=== PATIENT | male | born 1980 | race Caucasian/White ===

== ENCOUNTER 2018-11-01 12:16 | Inpatient (IN) | payer MEDICAID, OTHER ==
--- NOTE | 2018-11-01 12:52 | ED ---
Psychiatric Complaint - HPI Summary HPI Summary: A 38 y/o male presents to [facility] with a chief complaint of not feeling emotionally or physically safe. Per triage note, the patient's roommate said that the patient had suicidal thoughts. The patient denies any current SI or HI. At triage he rated his pain as a 0/10 in severity. The patient says that he has been previously admitted to a psychiatric facility. He notes that he is not on psych medications that he should be on. He says that his family lives in [place]. He says that he smokes and drinks a lot, but did not drink today. He also reports marijuana use. He denies a Hx of DM or asthma. - History Of Current Complaint Chief Complaint: EDPsychosocial Time Seen by Provider: 11/01/18 12:39 Hx Obtained From: Patient Onset/Duration: Sudden Onset, Lasting Hours, Still Present Timing: Hours Severity Initially: Mild Severity Currently: None Character: Depressed Aggravating Factor(s): Nothing Alleviating Factor(s): Nothing Associated Signs And Symptoms: Positive: Negative Related History: Positive For: Prior Psychiatric Issues Has Suicidal: Reports: Thoughts - reported by roommate, Pt denies current SI Has Homicidal: Denies: Thoughts - Allergies/Home Medications Allergies/Adverse Reactions: Allergies Allergy/AdvReac Type Severity Reaction Status Date / Time No Known Allergies Allergy Verified 11/01/18 12:29 PMH/Surg Hx/FS Hx/Imm Hx Musculoskeletal History: Reports: Hx Back Problems - lower back pain Sensory History: Denies: Hx Deafness EENT History: Denies: Hx Deafness - Surgical History Surgery Procedure, Year, and Place: lasic on left eye at 1 yo Infectious Disease History: No Infectious Disease History: Denies: Traveled Outside the [place] in Last 30 Days - Family History Known Family History: Positive: Non-Contributory - Social History Alcohol Use: Daily Alcohol Amount: 6 beers/day Substance Use Type: Reports: Marijuana Substance Use Comment - Amount & Last Used: occassional marijuana use Smoking Status (MU): Current Every Day Smoker Type: Cigarettes Amount Used/How Often: 1/2 ppd Review of Systems Negative: Fever Psychological: Other - positive: SI reported by roommate Positive: Other - negative: current SI/HI All Other Systems Reviewed And Are Negative: Yes Physical Exam - Summary Physical Exam Summary: GENERAL: Patient is a well-developed and nourished M who is lying comfortable in the stretcher. Patient is not in any acute respiratory distress. HEAD AND FACE: Normocephalic EYES: PERRLA, EOMI x 2. EARS: Hearing grossly intact. MOUTH: Oropharynx within normal limits. NECK: Supple, trachea is midline, no adenopathy, no JVD, no carotid bruit. CHEST: Symmetric, no tenderness at palpation LUNGS: Clear to auscultation bilaterally. No wheezing or crackles. CVS: Regular rate and rhythm, S1 and S2 present, no murmurs or gallops appreciated. ABDOMEN: Soft, non-tender. Bowel sounds are normal. No abnormal abdominal pulsations. EXTREMITIES: Full ROM in all major joints, no edema, no cyanosis or clubbing. NEURO: Alert and oriented x 3. No acute neurological deficits. Speech is normal and follows commands. SKIN: Dry and warm Psych: affect is very flat Triage Information Reviewed: Yes Vital Signs On Initial Exam: Initial Vitals Temp Pulse Resp BP Pulse Ox 99.1 F 121 20 184/115 99 11/01/18 12:20 11/01/18 12:20 11/01/18 12:20 11/01/18 12:20 11/01/18 12:20 Vital Signs Reviewed: Yes Diagnostics - Vital Signs Vital Signs Temp Pulse Resp BP Pulse Ox 11/01/18 12:20 99.1 F 121 20 184/115 99 - Laboratory Result Diagrams: 11/01/18 13:05 11/01/18 13:05 Lab Statement: Any lab studies that have been ordered have been reviewed, and results considered in the medical decision making process. Course/Dx - Course Course Of Treatment: A 38 y/o male presents to [facility] with a chief complaint of not feeling emotionally or physically safe. The physical exam revealed that the patient's affect is very flat. Bloodwork, chemistries and urines obtained and the patient has been cleared for MHE. Per mental health assistant football coach, Dr. Hernandez has decided that the patient will be admitted. The patient is agreeable with this plan. - Differential Dx/Clinical Impression Provider Diagnosis: Psychosis - Physician Notifications Discussed Care Of Patient With: Dwaine Hernandez Time Discussed With Above Provider: 17:54 Instructed by Provider To: Other - Per mental health assistant football coach, Dr. Hernandez has decided that the patient will be admitted. Dx: psychosis. Discharge - Sign-Out/Discharge Documenting (check all that apply): Patient Departure - admit Patient Received Moderate/Deep Sedation with Procedure: No - Discharge Plan Condition: Fair Disposition: PSYCHIATRIC FACILITY-[facility] [place] Referrals: No Primary Care Phys,NOPCP [Primary Care Provider] - - Billing Disposition and Condition Condition: FAIR Disposition: Psychiatric Facility [facility] [place] - Attestation Statements Document Initiated by Scribe: Yes Documenting Scribe: Jewel Rhoades Provider For Whom Scribe is Documenting (Include Credential): Hector iMguel MD Scribe Attestation: Jewel Martinez, scribed for Hector Miguel MD on 11/01/18 at 1816. Scribe Documentation Reviewed: Yes Provider Attestation: The documentation as recorded by the Jewel aguirre accurately reflects the service I personally performed and the decisions made by , Greg Miguel MD Status of Scribe Document: Viewed
[2018-11-01 13:11] LABS: Hematocrit 49 % (42-52); Hemoglobin 16.7 g/dL (14.0-18.0); Mean Corpuscular HGB Conc 34 g/dL (31-36); Mean Corpuscular Hemoglobin 34 pg (27-31); Mean Corpuscular Volume 100 fL (80-94); Mean Platelet Volume 8.4 fL (7.4-10.4); Platelet Count 178 10^3/uL (150-450); Red Blood Count 4.89 10^6 /uL (4.18-5.48); Red Cell Distribution Width 14 % (10-15); White Blood Count 11.2 10^3/uL (3.5-10.8)
[2018-11-01 13:27] LABS: ALT 43 U/L (7-52); AST 26 U/L (13-39); Albumin/Globulin Ratio 1.8 (1-3); Alkaline Phosphatase 45 U/L (34-104); Anion Gap 8 mmol/L (2-11); BUN/Creatinine Ratio 9.1 (8-20); Blood Urea Nitrogen 8 mg/dL (6-24); CO2 Carbon Dioxide 26 mmol/L (22-32); Chloride 96 mmol/L (101-111); EGFR African American 117.3 (>60); EGFR Non-African American 96.9 (>60); Globulin 2.8 g/dL (2-4); Glucose 156 mg/dL (70-100); Potassium 4.1 mmol/L (3.5-5.0); Sodium 130 mmol/L (135-145); Total Protein 7.8 g/dL (6.4-8.9)
[2018-11-01 13:35] LABS: ABS Lymphocytes 0.6 10^3/ul (1.0-4.8); ABS Monocytes 0.5 10^3/ul (0-0.8); Eosinophil % 0.1 %; Lymphocyte % 5.5 %
[2018-11-01 13:59] LABS: Acetaminophen < 15 mcg/mL; Alcohol < 10 mg/dL (<10); Salicylate < 2.50 mg/dL (<30)
[2018-11-01 14:15] LABS: TSH (Thyroid Stimulating Horm) 2.87 mcIU/mL (0.34-5.60)
[2018-11-01 14:44] LABS: Urine Appearance Clear; Urine Bilirubin Negative (Negative); Urine Blood Negative (Negative); Urine Color Yellow; Urine Glucose Negative (Negative); Urine Ketones 1+ (Negative); Urine Nitrite Negative (Negative); Urine Protein Negative (Negative); Urine Specific Gravity 1.005 (1.010-1.030); Urine Urobilinogen Negative (Negative)
[2018-11-01 14:55] LABS: Urine Benzodiazepine Screen None Detected (None Detect); Urine Opiates Screen None Detected (None Detect)
[2018-11-01] MEDS ORDERED: OLANzapine TAB* 5 MG ONE (23:13)
[2018-11-01] MEDS ORDERED: Nicotine* 2MG (FRUIT FLAVOR) GUM PO PRN (23:24)
[2018-11-01] MEDS ORDERED: Al Hydrox/Mg Hydrox/Simet LIQ* 30 ML UDC PO PRN (23:24)
[2018-11-01] MEDS ORDERED: Acetaminophen TAB* 325 MG PO PRN (23:24)
[2018-11-02] MEDS ORDERED: LORazepam PO 0-6 for WAM protocol PO SCH (00:15)
[2018-11-02] MEDS: Nicotine PATCH 21 MG/24 HR* PATCH TRANSDERM SCH (10:00)
[2018-11-02] MEDS: Vitamin THERAPEUTIC TAB PO SCH (10:00)
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
[2018-11-02] MEDS ORDERED: OLANzapine TAB* 5 MG PO SCH (21:00)
[2018-11-02] MEDS: Nicotine Patch Removal NOTE PATCH OFF SCH (21:18)
[2018-11-03 08:32] LABS: HDL Cholesterol 55.8 mg/dL
[2018-11-03] MEDS: Vitamin THERAPEUTIC TAB PO SCH (10:07)
[2018-11-03] MEDS: Nicotine PATCH 21 MG/24 HR* PATCH TRANSDERM SCH (10:07)
--- NOTE | 2018-11-03 13:40 | PN ---
Subjective - Subjective Date of Service: 11/03/18 Service Type: 39349 Hosp care 25 min moderate complexity Subjective: Patient did not sleep well last night, waking often. He reports difficulty with nicotine craving and reports typically drinking alcohol before going to sleep. He endorses onset of paranoia after using cocaine and buying sudafed, which he later threw away instead of giving it to someone for manufacturing meth. He is receptive to information that daily alcohol and cannabis use is likely worsening paranoid and mood symptoms. He states he would accept a referral for outpatient substance use treatment. Objective - General Observations Appearance: Well Groomed Stature: WNL, Overweight Posture: Tense Eye Contact: Intermittent Behavior/Activity: WNL - Interaction Observations Attitude Towards Examiner: Cooperative, Anxious Stated Mood: Dysphoric, Anxious Affect: Flat Speech Pattern/Tone: Appropriate, Quiet Volume Thought Process: Circumstantial, Impoverished Perception: WNL Thought Content: Paranoid Thought Process: Lethality: Paranoid Ideation Hallucination Type: Denies Delusion Type: Persecution - Cognitive Function Orientation: A&O x 4 Level of Consciousness: Alert Cognition: Impaired Attention/Concentration Estimated Intelligence: Normal Insight: Difficulty Acknowledging Presence of Psyciatric Problems Judgment Within Normal Limits: No Ability to Make Reasonable Decisions: Serverely Impaired - Medication Compliance Cooperative with Inpatient Medication Regimen: Yes - Group Participation Participates in Group Activities: Partial Assessment - Assessment Merits Inpatient Hospitalization: For Immediate Safety, For Stabilization Inpatient DSM-V Dx: F10.259 Clinical Impression: 38yo wm, single, unemployed, never , father of an estranged child, tenuously domiciled with a friend who presented to ED due increase in SI and a recent near-attempt. He is quite dependent on alcohol and marijuana and has been so for all of his adult and late teen years. He has a history of chaotic childhood which included poor supervision, foster care and residential treatment. He presents with paranoid ideation and limited insight into impact of substance use. He is being monitored for alcohol withdrawal symptoms. He merits hospitalization for immediate safety and stabilization. Plan - Plan Treatment Plan: Name: JOSUE WILSON Birthdate: 1980 [id number] continue acute intensive psychiatric treatment. may decrease to q30min and allow staff pass. obtain CT of brain. DC olanzapine; add trazodone for sleep. discharge planning to include roomate and referrals for outpatient treatment. Continued Medication Management: Start Medication Medications: Current Medications Acetaminophen (Tylenol Tab*) 650 mg PO Q4H PRN PRN Reason: PAIN or TEMP > 101 F Al Hydrox/Mg Hydrox/Simethicone (Maalox Plus*) 30 ml PO Q4H PRN PRN Reason: INDIGESTION Lorazepam (Ativan Tab(*)) 0 - 6 mg PO .PER [facility]; Protocol Multivitamins (Theragran Tab*) 1 tab PO DAILY [facility] Last Admin: 11/03/18 10:07 Dose: 1 tab Nicotine (Nicotine Patch 21 Mg/24 Hr*) 1 patch TRANSDERM DAILY [facility] Last Admin: 11/03/18 10:07 Dose: 1 patch Nicotine Polacrilex (Nicotine Gum*) 2 mg PO Q2H PRN PRN Reason: CRAVINGS Olanzapine (Zyprexa Tab*) 5 mg PO BEDTIME [facility] Last Admin: 11/02/18 21:17 Dose: 5 mg Pharmacy Profile Note (Nicotine Patch Removal Note*) 1 note PATCH OFF 2100 [facility] Last Admin: 11/02/18 21:18 Dose: 1 note - Discharge Plan Discharge Plan: Inpatient Hospitalization
[2018-11-03] MEDS ORDERED: traZODone TAB* 50 MG TAB PO SCH (21:00)
[2018-11-03] MEDS: Nicotine Patch Removal NOTE PATCH OFF SCH (21:34)
[2018-11-04] MEDS: Nicotine PATCH 21 MG/24 HR* PATCH TRANSDERM SCH (09:51)
[2018-11-04] MEDS: Vitamin THERAPEUTIC TAB PO SCH (09:51)
--- NOTE | 2018-11-04 11:47 | PN ---
BSU: Group Therapy Note - Service Type Service Type: [id number] Group Psychotherapy - Cognitive Behavioral Group Therapy ( CBT):Patient was attentive and participatory in CBT programming this morning, and remained in good behavioral control. Patient expressed positive insights regarding relevant treatment interventions and goals.
[2018-11-04] MEDS: Thiamine TAB* 100 MG TAB PO SCH (13:44)
--- NOTE | 2018-11-04 15:03 | PN ---
Subjective - Subjective Date of Service: 11/04/18 Service Type: 44299 Hosp care 35 min high complexity Subjective: Patient requested that his roommate, Ok, be invited to meet with treatment team. Ok reports patient appears to have continued disorganized thinking, aeb Josue thinking that a staff member is Ok's daughter. During discussion of this, patient attempts to confabulate. We discuss recommendation to abstain from alcohol and other substances and patient is notified of risk. He presents with pre-contemplation but is agreeable to referral to outpatient mental health and substance use referrals. We discuss enabling dynamic of the relationship, including Ok financially and passively assisting with Josue's substance use. Patient reports less sleep last night than previously, attributes this to trazodone. He is receptive to suggestion to return to olanzapine. Patient also receptive to recommendation to continue with thiamine for alcohol-related cognitive impairment. Objective - General Observations Stature: Overweight Posture: Slumped Eye Contact: Avoidant Behavior/Activity: Peculiar - Interaction Observations Attitude Towards Examiner: Cooperative, Anxious, Mistrustful Stated Mood: Anxious Affect: Full Speech Pattern/Tone: Unclear - mumbling, at times, Quiet Volume Thought Process: Disorganized, Circumstantial, Impoverished Thought Content: Paranoid Thought Process: Lethality: Paranoid Ideation Hallucination Type: Denies Delusion Type: Persecution - Cognitive Function Orientation: A&O x 4 Level of Consciousness: Alert Cognition: Impaired Attention/Concentration Estimated Intelligence: Normal Insight: Difficulty Acknowledging Presence of Psyciatric Problems Judgment Within Normal Limits: No Ability to Make Reasonable Decisions: Serverely Impaired - Medication Compliance Cooperative with Inpatient Medication Regimen: Yes - Group Participation Participates in Group Activities: Partial Assessment - Assessment Merits Inpatient Hospitalization: For Immediate Safety, For Stabilization Inpatient DSM-V Dx: F10.259 Clinical Impression: 38yo wm, single, unemployed, never , father of an estranged child, tenuously domiciled with a friend who presented to ED due increase in SI and a recent near-attempt. He is quite dependent on alcohol and marijuana and has been so for all of his adult and late teen years. He has a history of chaotic childhood which included poor supervision, foster care and residential treatment. He presents with paranoid ideation and limited insight into impact of substance use. He is being monitored for alcohol withdrawal symptoms. He merits hospitalization for immediate safety and stabilization. Plan - Plan Treatment Plan: Name: JOSUE WILSON Birthdate: 1980 [id number] continue acute intensive psychiatric treatment. may decrease to q30min and allow staff pass. DC trazodone. add thiamine daily, restart olanzapine at 10mg qhs discharge planning to include roommate and referrals for outpatient treatment. Continued Medication Management: Start Medication Medications: Current Medications Acetaminophen (Tylenol Tab*) 650 mg PO Q4H PRN PRN Reason: PAIN or TEMP > 101 F Al Hydrox/Mg Hydrox/Simethicone (Maalox Plus*) 30 ml PO Q4H PRN PRN Reason: INDIGESTION Lorazepam (Ativan Tab(*)) 0 - 6 mg PO .PER [facility]; Protocol Multivitamins (Theragran Tab*) 1 tab PO DAILY [facility] Last Admin: 11/04/18 09:51 Dose: 1 tab Nicotine (Nicotine Patch 21 Mg/24 Hr*) 1 patch TRANSDERM DAILY [facility] Last Admin: 11/04/18 09:51 Dose: 1 patch Nicotine Polacrilex (Nicotine Gum*) 2 mg PO Q2H PRN PRN Reason: CRAVINGS Olanzapine (Zyprexa Tab*) 10 mg PO BEDTIME [facility] Pharmacy Profile Note (Nicotine Patch Removal Note*) 1 note PATCH OFF 2100 [facility] Last Admin: 11/03/18 21:34 Dose: 1 note Thiamine HCl (Vitamin B-1 Tab*) 100 mg PO DAILY [facility] Last Admin: 11/04/18 13:44 Dose: 100 mg - Discharge Plan Discharge Plan: Inpatient Hospitalization
--- NOTE | 2018-11-04 16:00 | PN ---
BSU: Group Therapy Note - Service Type Service Type: [id number] Group Psychotherapy - Medication Education Group: Patient was attentive and participatory in group, and remained in good behavioral control. Patient expressed positive insights regarding relevant treatment interventions. Patient stated understanding of material discussed and had appropriate questions.
[2018-11-04] MEDS: Nicotine Patch Removal NOTE PATCH OFF SCH (20:08)
[2018-11-04] MEDS ORDERED: OLANzapine TAB* 10 MG PO SCH (21:00)
[2018-11-05 08:35] VITALS: BP 134/82
[2018-11-05] MEDS: Nicotine PATCH 21 MG/24 HR* PATCH TRANSDERM SCH (09:23)
[2018-11-05] MEDS: Vitamin THERAPEUTIC TAB PO SCH (09:24)
[2018-11-05] MEDS: Thiamine TAB* 100 MG TAB PO SCH (09:24)
--- NOTE | 2018-11-05 11:31 | PN ---
BSU: Group Therapy Note - Service Type Service Type: [id number] Group Psychotherapy - Cognitive Behavioral Group Therapy ( CBT):Patient was attentive and participatory in CBT programming this morning, and remained in good behavioral control. Patient expressed positive insights regarding relevant treatment interventions and goals.
--- NOTE | 2018-11-06 16:57 | DS ---
CC: [facility]; [facility] * DISCHARGE SUMMARY: DATE OF ADMISSION: 11/01/18 DATE OF DISCHARGE: 11/05/18 SUPERVISING PSYCHIATRIST: Dr. Richard Morales.* (DICTATED BY MICHELE BLOUNT) DISCHARGE DIAGNOSES: 1. Substance-induced psychotic disorder. 2. Alcohol use disorder. 3. Cannabis use disorder. 4. Tobacco use disorder. 5. Rule out Korsakoff dementia. CONDITION AT THE TIME OF DISCHARGE: Improved. The patient is euthymic with bright affect. He is well related and participates fully in conversation. He denies suicidal ideation. He denies HI or . He reports desire to be discharged and agrees with discharge plan including recommendations to follow up at [facility] and [facility]. He has participated in the unit programming. He has been safe on all checks. He has been decreased to 30- minute observation and allowed staff pass. He has been shown to exhibit behavioral control. The patient met with treatment team and his roommate to discuss discharge planning including means restriction and safe planning in the home. The patient is discharged to home. MENTAL STATUS EXAM: The patient is a 38-year-old white male with average build. He has short light brown hair and is casually dressed in own clothing. He is alert and oriented x3. Eye contact is good. Speech is soft and articulate. Concentration is good. Memory is 3/3. Mood is euthymic with full range of affect. There is no abnormal psychomotor activity noted. Thought process is logical, goal directed, and coherent. Thought content is negative for passive wish, suicidal ideation, HI, or . He denies auditory or visual hallucinations. He reports improvement in paranoid ideation. Insight and judgment are fair. Fund of knowledge is adequate. INSTRUCTIONS GIVEN TO THE PATIENT: A. Medications: 1. Olanzapine 10 mg p.o. q.h.s. 2. Thiamine 100 mg p.o. daily. These were electronically prescribed to [facility] in [place]. B. Diet: Regular. C. Activity: Ambulation as tolerated. Tobacco cessation was declined by the patient. There are no pending labs or diagnostic studies. D. Followup care: The patient was referred to [facility] and [facility] in [place]. E. Substance use followup: As above at [facility]. HOSPITAL COURSE: Part A. Reason for Admission: Edy presented to the ED by a private vehicle with his roommate due to suicidal ideation, passive wish , alcohol dependence, and disorganized thinking. HPI: This is the third known hospitalization for this 38-year-old white male, who presented to the emergency department via private car. He has had an increase in suicidal ideation and had a near attempt a few weeks ago wherein he drank copious amounts of rum and went to the [facility]. The patient thought of the friend with whom he lives and did not want his suicide to impact him. The patient reports an increased depressed mood, anhedonia, decreased energy and motivation, decreased concentration, as well as decreased appetite. The patient endorses paranoid ideation. He reports that there are more and more people in [place] where he lives. He is suspicious of various trucks parking across the street and refers to the trucks and first responders. He states this has been going on for the past 2 to 3 weeks. Collateral information from the emergency room from his roommate states that he feels like he is being followed and the has taken over. The roommate took the patient to [facility] recently, but the patient was too paranoid to go inside. The patient reports mild anxiety and denies this is above normal. He denies auditory hallucinations or visual hallucinations. He denies obsessions or compulsions. He is noted to be hypervigilant and often looks about the room. Substance use history: The patient is a daily alcohol user. He started drinking steadily since 2011. He states he stops for sometimes 2 to 3 days and then impulsively drinks. He usually drinks a 12-pack or a pint of liquor daily. He reports daily marijuana use once or twice a day. He states that he used to smoke more so. He smokes cigarettes daily and rolls his own, so he is unable to quantify how much. He reports on and off crack and cocaine use and his last use was in July. Part B. Psychiatric treatment rendered: The patient was admitted to the adult behavioral services unit on voluntary status. Code status was full. He was placed on 15-minute checks for his safety. He was monitored for alcohol withdrawal via [facility] protocol and successfully detoxed without scoring. He intermittently participated in supportive milieu. He was started on olanzapine 5 mg at bedtime by the admitting psychiatrist. The patient reported poor sleep. We noticed an improvement in thinking logically and therefore discontinued olanzapine, trialed trazodone for 1 night and the patient reported worsening insomnia. We returned to olanzapine and increased it to 10 mg. The patient reported much improved sleep and feeling rested. We added thiamine as it was noted that he was confabulating memory deficits and paranoid ideation. Due to collateral information that his mental status has changed greatly and suddenly, we obtained a CT of the brain, which was normal. The patient requested that his roommate, Ok, be invited to meet with treatment team. Ok reports the patient appears to have continued disorganized thinking as evidenced by Edy thinking that a staff member is Ok's daughter. As stated above, the patient attempted to confabulate. We discussed recommendation to abstain from alcohol and other substances due to the patient's worsening cognition. He presents with precontemplation, but is agreeable to referral for outpatient mental health and substance use referrals. We discussed the enabling dynamic of the relationship including Ok financially and passively assisting with Edy's substance use. Due to obligation to treat in least restrictive setting, discharge was agreed upon by treatment team. We discharged in the morning so that he could attend his initial appointment at [facility]. The patient denied compulsions to drink and he identified that his thoughts were more clear. The patient encouraged to call this unit with any questions or concerns after discharge. ADEEL FELIPE NP [id number]/CPS #: [id number] MARINA
== END 2018-11-05 12:00 | disposition home or self-care (01) | DRG 775 ==
LOC: ED 12:16 → BSU 20:30
PROVIDERS: ADMIT Psychiatry & Neurology Psychiatry; ATTEND Psychiatry & Neurology Psychiatry
PROC: GZHZZZZ Group Psychotherapy (ICD-10-PCS; principal; 2018-11-04)
DX: F10.259 Alcohol dependence with alcohol-induced psychotic disorder, unspecified (principal); R45.851 Suicidal ideations; F12.259 Cannabis dependence with psychotic disorder, unspecified; Y90.9 Presence of alcohol in blood, level not specified; F32.9 Major depressive disorder, single episode, unspecified; F03.90 Unspecified dementia, unspecified severity, without behavioral disturbance, psychotic disturbance, mood disturbance, and anxiety; E66.3 Overweight; F17.210 Nicotine dependence, cigarettes, uncomplicated; H50.9 Unspecified strabismus; Z56.0 Unemployment, unspecified; Z68.24 Body mass index [BMI] 24.0-24.9, adult
CPT/HCPCS: 36415; 70450; 80053; 80061; 80307; 80320; 80329; 81003; 83036; 84443; 85025; 90853; 99222; 99232; 99233; 99284; A9270-GY; G0480

== ENCOUNTER 2018-12-01 13:32 | Emergency (ER) | payer MEDICAID, OTHER ==
[2018-12-01 13:42] VITALS: BP 130/89
== END 2018-12-01 15:10 | disposition left against medical advice (07) ==
LOC: ED 13:32
DX: Z53.21 Procedure and treatment not carried out due to patient leaving prior to being seen by health care provider (principal)
CPT/HCPCS: 99281

== ENCOUNTER 2018-12-01 17:59 | Emergency (ER) | payer MEDICAID ==
--- NOTE | 2018-12-01 19:24 | ED ---
Complex/Multi-Sys Presentation - HPI Summary HPI Summary: Pt is a 38 y/o M presenting to the ED with a chief complaint of wanting a medication change. He states he was admitted here for depression recently, and the medications prescribed to him have been making him feel fatigued and out of it. He denies CP, SOB, SI/HI, and he was dxed with schizophrenia last time he was here. His father has manic depressive disorder. - History Of Current Complaint Chief Complaint: EDPsychosocial Time Seen by Provider: 12/01/18 19:17 Hx Obtained From: Patient Onset/Duration: Gradual Onset, Lasting Days, Still Present Timing: Constant, Days Severity Currently: Mild Severity Initially: Mild Associated Signs And Symptoms: Positive: Other - fatigue. Negative: SOB, Chest Pain - Allergies/Home Medications Allergies/Adverse Reactions: Allergies Allergy/AdvReac Type Severity Reaction Status Date / Time No Known Allergies Allergy Verified 11/01/18 12:29 PMH/Surg Hx/FS Hx/Imm Hx Previously Healthy: Yes Endocrine/Hematology History: Denies: Hx Diabetes Cardiovascular History: Denies: Hx Hypertension Musculoskeletal History: Reports: Hx Back Problems - lower back pain Sensory History: Denies: Hx Contacts or Glasses, Hx Deafness, Hx Hearing Aid Opthamlomology History: Denies: Hx Contacts or Glasses Psychiatric History: Reports: Hx Anxiety, Hx Depression, Hx Bipolar Disorder Denies: Hx Eating Disorder, Hx Suicide Attempt, Hx of Violent Episodes Against Others - Surgical History Surgery Procedure, Year, and Place: lasic on left eye at 1 yo. Appendix 6 years ago Infectious Disease History: No Infectious Disease History: Denies: Traveled Outside the [place] in Last 30 Days - Family History Known Family History: Positive: Other - father - manic depressive disorder - Social History Alcohol Use: None Alcohol Amount: 6 beers/day Hx Substance Use: Yes Substance Use Type: Reports: Marijuana Substance Use Comment - Amount & Last Used: daily- today Hx Tobacco Use: Yes Smoking Status (MU): Light Every Day Tobacco Smoker Type: Cigarettes Amount Used/How Often: 1/2 ppd Review of Systems Positive: Fatigue Negative: Chest Pain Negative: Shortness Of Breath All Other Systems Reviewed And Are Negative: Yes Physical Exam - Summary Physical Exam Summary: General: Well appearing, no distress Cardiovascular: Skin is well perfused Pulmonary: No respiratory distress, no tachypnea Abdomen: Non-distended Skin: Warm, pink, dry Psych: Normal affect Neuro: A&Ox3 Triage Information Reviewed: Yes Vital Signs On Initial Exam: Initial Vitals Temp Pulse Resp BP Pulse Ox 97.8 F 68 18 129/90 98 12/01/18 18:01 12/01/18 18:01 12/01/18 18:01 12/01/18 18:01 12/01/18 18:01 Vital Signs Reviewed: Yes Diagnostics - Vital Signs Vital Signs Temp Pulse Resp BP Pulse Ox 12/01/18 18:01 97.8 F 68 18 129/90 98 - Laboratory Lab Statement: Any lab studies that have been ordered have been reviewed, and results considered in the medical decision making process. Complex Multi-Symp Course/Dx Course Of Treatment: 30-year-old male to history of schizophrenia presents with request for medication change. - Patient does not have any emergent psychiatric conditions, no suicidal ideation. Patient states his olanzapine makes him drowsy. Discussed with patient that it would be best for him to follow up with outpatient psychiatrist regarding medication change. Patient expressed understanding and will follow-up outpatient. - Diagnoses Provider Diagnoses: Schizophrenia Discharge - Sign-Out/Discharge Documenting (check all that apply): Patient Departure Patient Received Moderate/Deep Sedation with Procedure: No - Discharge Plan Condition: Stable Disposition: HOME Referrals: [facility] [Outside] [facility] [Outside] Additional Instructions: Please follow up with mental health outpatient. Return to emergency department for thoughts of wanting to hurt yourself or others or if you are concerned - Billing Disposition and Condition Condition: STABLE Disposition: Home - Attestation Statements Document Initiated by Scribe: Yes Documenting Scribe: Brittney Burris Provider For Whom Xavier is Documenting (Include Credential): Nav Meeks MD. Scribe Attestation: Michelle, Brittney Burris, scribed for Nav Meeks MD. on 12/01/18 at 2156. Scribe Documentation Reviewed: Yes Provider Attestation: The documentation as recorded by the scribe, Brittney Burris accurately reflects the service I personally performed and the decisions made by me, Nav Meeks MD. Status of Scribe Document: Viewed
[2018-12-01 19:41] VITALS: BP 116/92
== END 2018-12-01 19:41 | disposition home or self-care (01) ==
LOC: ED 17:59
DX: F20.9 Schizophrenia, unspecified (principal); F17.210 Nicotine dependence, cigarettes, uncomplicated; Z79.899 Other long term (current) drug therapy
CPT/HCPCS: 99282